=== PATIENT | male | born 1950 | race Caucasian/White ===

== ENCOUNTER → 2021-06-29 | Outpatient (CLI) | payer OTHER ==
[~2021-06-29] MED LIST: ASPIRIN EC81 M1 PO; CIPROFLOXACIN500 M1 PO; DILTIAZEM ER360 MG PO; GLUCOPHAGE1000 MG PO; LISINOPRIL40 MG PO; LOPRESSOR25; OMEPRAZOLE 20 M20 MG PO; PRAVACHOL80 MG PO
== END ==
LOC: M.ULTRA 14:00
PROVIDERS: ATTEND Family Medicine
DX: N28.1 Cyst of kidney, acquired (principal); N18.4 Chronic kidney disease, stage 4 (severe)

== ENCOUNTER 2021-08-21 11:05 | Inpatient (IN) | payer OTHER ==
[~2021-08-21] VITALS: Ht 177.8 cm; Wt 102.1 kg
[~2021-08-21 11:05] MED LIST changes: +DILTIAZEM ER180 M2 PO; -DILTIAZEM ER360 MG PO; -GLUCOPHAGE1000 MG PO; -LOPRESSOR25; +METFORMIN HCL500 MG PO; +OMEPRAZOLE 20 M20 M1 PO; -OMEPRAZOLE 20 M20 MG PO; +PRAVACHOL40 MG PO; -PRAVACHOL80 MG PO; +TOPROL XL200 MG PO
[2021-08-21] MEDS ORDERED: TESSALON PERLE100 MG PO (11:13)
[2021-08-21] MEDS ORDERED: ZINC50 MG PO (11:13)
[2021-08-21] MEDS ORDERED: ONDANSETRON HCL4 M2 PO (11:13)
[2021-08-21 11:14] VITALS: BP 92/45
[2021-08-21] MEDS ORDERED: FLONASE 0.05%50 MCG NARES (11:14)
[2021-08-21] MEDS ORDERED: IMODIUM A-D2 MG PO (11:14)
[2021-08-21] MEDS ORDERED: EAR WAX REMOVAL15 ML OTIC (11:15)
[2021-08-21] MEDS ORDERED: ELIQUIS5 MG PO (11:16)
[2021-08-21] MEDS ORDERED: GLIPIZIDE 10 MG10 MG PO (11:16)
[2021-08-21] MEDS ORDERED: IRON325 M1 PO (11:17)
[2021-08-21] MEDS ORDERED: FUROSEMIDE 80 M80 M1 PO (11:17)
[2021-08-21] MEDS ORDERED: LEVO-T25 MCG PO (11:18)
[2021-08-21] MEDS ORDERED: MELATONIN3 M1 PO (11:18)
[2021-08-21] MEDS ORDERED: COZAAR100 MG PO (11:19)
[2021-08-21] MEDS ORDERED: VITAMIN D350 MC3 PO (11:20)
[2021-08-21] MEDS ORDERED: VITAMIN C500 M1 PO (11:20)
[2021-08-21 11:43] LABS: ABSOLUTE BASOPHILS 0.1 thou/uL (0.0-0.2); ABSOLUTE EOSINOPHILS 0.3 thou/uL (0.0-0.7); ABSOLUTE LYMPHOCYTES 0.9 thou/uL (0.8-5.3); ABSOLUTE MONOCYTES 1.1 thou/uL (0.0-1.2); ABSOLUTE NEUTROPHILS 7.7 thou/uL (1.6-8.1); BASOPHILS 1.5 %; EOSINOPHILS 2.7 %; HEMATOCRIT 30.3 % (42.0-52.0); HEMOGLOBIN 9.9 gm/dL (14.0-18.0); LYMPHOCYTES 9.3 %; MCH 26.3 pg (26.0-34.0); MCHC 32.5 g/dL (28.0-37.0); MCV 80.9 fL (80.0-100.0); MONOCYTES 10.8 %; MPV 8.1 fl. (7.2-11.1); NUCLEATED RBCS 0 /100WBC; PLATELET COUNT* 272 thou/uL (150-400); POLYS 75.7 %; RBC 3.75 mil/uL (4.50-6.00); RDW-CV 23.3 % (10.5-14.5); WBC 10.1 thou/uL (4.0-11.0)
[2021-08-21 11:53] LABS: CALCIUM 8.5 mg/dL (8.5-10.1); CREATININE 3.8 mg/dL (0.6-1.3)
[2021-08-21 12:03] LABS: ALBUMIN 2.9 g/dL (3.4-5.0); TOTAL BILIRUBIN 0.7 mg/dL (<0.1-1.0); TOTAL PROTEIN 6.9 g/dL (6.4-8.2)
[2021-08-21 12:36] LABS: ANISOCYTOSIS 2+; HYPOCHROMASIA 1+
--- NOTE | 2021-08-21 12:58 | EKG ---
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: [facility] : 1950 Requested By: Jess Hong Order Number: [id number] MD: Paxton Patrick Measurements Intervals [place] Rate: 97 P: NM: QRS: 38 QRSD: 101 T: 4 QT: 371 QTc: 472 Interpretive Statements Atrial fibrillation Diffuse nonspecific ST-T alterations No previous ECG available for comparison Electronically Signed On 08-21-2021 12:58:08 [employer]IOR [employer] by Paxton Patrick [email or web address] <ELECTRONICALLY SIGNED> By: Paxton Patrick MD, [facility] 08/21/21 1258 31 31 Paxton Patrick MD, FACC /EPI
[2021-08-21 13:34] LABS: URINE BILIRUBIN NEGATIVE (Negative); URINE BLOOD NEGATIVE (Negative); URINE CLARITY CLEAR; URINE COLOR YELLOW; URINE GLUCOSE-RANDOM NEGATIVE (Negative); URINE KETONES NEGATIVE (Negative); URINE LEUKOCYTES-REFLEX NEGATIVE (Negative); URINE NITRITE-REFLEX NEGATIVE (Negative); URINE PROTEIN NEGATIVE (Negative); URINE SPECIFIC GRAVITY 1.015 (1.005-1.030); URINE UROBILINOGEN 0.2 E.U./dl (0.2-1.0)
--- NOTE | 2021-08-21 15:52 | NUR ---
LACEY: [phone]
[2021-08-21 16:30] VITALS: BP 158/97
[2021-08-21 23:30] VITALS: BP 117/81; BP 120/84
--- NOTE | 2021-08-22 00:59 | NUR ---
PATIENT UP FROM ER VIA CART TO ROOM 232. PT ALERT/ORIENTED X4, PLEASANT. PT FROM [facility] AND STATES HE DOES NOT WANT TO GO BACK THERE. PT SAID HE WAS TO BE DISCHARGED TO HOME SOON BUT BLOOD PRESSURE DROPPED AND HE WAS ADMITTED HERE. PT WAS GOING TO HAVE HOME HEALTH CARE AND HAVE A W/CHAIR AND WALKER PROVIDED AT HOME. HE WAS ALSO SUPPOSE TO HAVE A NEW CPAP DELIVERED TO HIS HOME. PT SAYS HE HAS SUPPORT OF AND DAUGHTER. PT VOIDS YELLOW URINE PER URINAL. PT STATES HE AND HAD COVID APPROX 14-15 DAYS AGO; HAS HAD THE VACCINE AND BOOSTER BUT DOESN'T REMEMBER WHEN. PT WEARS BRIEF AT LONG-TERM AND SAYS HE HAD TO LAY IN URINE FOR HOURS AND HAS SKIN BREAKDOWN ON BOTTOM. AREA IS HEALING. PT AGREED TO LEAVE BRIEF OFF AT THIS TIME AND WAS ABLE TO USE URINAL WITH NO ASSISTANCE. PT ORIENTED TO ROOM/POLICIES AND VERBALIZES UNDERSTANDING. FREQUENTLY USED ITEMS AND CALL LIGHT WITHIN REACH. SIDERAILS UPX3 AND BED ALARM ON. WILL CONTINUE TO MONITOR.
[2021-08-22 04:00] VITALS: BP 120/74
[2021-08-22 05:02] LABS: ABSOLUTE BASOPHILS 0.1 thou/uL (0.0-0.2); ABSOLUTE EOSINOPHILS 0.2 thou/uL (0.0-0.7); ABSOLUTE LYMPHOCYTES 0.7 thou/uL (0.8-5.3); ABSOLUTE MONOCYTES 0.7 thou/uL (0.0-1.2); ABSOLUTE NEUTROPHILS 5.2 thou/uL (1.6-8.1); BASOPHILS 0.8 %; EOSINOPHILS 3.4 %; HEMATOCRIT 29.4 % (42.0-52.0); HEMOGLOBIN 9.2 gm/dL (14.0-18.0); LYMPHOCYTES 10.2 %; MCH 25.7 pg (26.0-34.0); MCHC 31.4 g/dL (28.0-37.0); MONOCYTES 10.7 %; MPV 8.2 fl. (7.2-11.1); NUCLEATED RBCS 0 /100WBC; PLATELET COUNT* 218 thou/uL (150-400); POLYS 74.9 %; RBC 3.58 mil/uL (4.50-6.00); RDW-CV 23.6 % (10.5-14.5); WBC 6.9 thou/uL (4.0-11.0)
[2021-08-22 05:36] LABS: ALBUMIN 2.6 g/dL (3.4-5.0); CALCIUM 8.4 mg/dL (8.5-10.1); TOTAL BILIRUBIN 0.6 mg/dL (<0.1-1.0); TOTAL PROTEIN 6.4 g/dL (6.4-8.2)
[2021-08-22 08:00] VITALS: BP 130/73
[2021-08-22 08:40] LABS: ANISOCYTOSIS 2+; HYPOCHROMASIA 1+
--- NOTE | 2021-08-22 09:44 | NUR ---
CM ASSESSMENT: CM CONTACTED PT'S SPOUSE TO COMPLETE CM ASSESSMENT. PT'S SPOUSE INFORMS THAT THE PT HAS BEEN INPT AT [facility] SINCE 07/25/21 SKILLED. PT'S SPOUSE ALSO INFORMS THAT THEY HAD PLANNED FOR THE PT TO D/C HOME FROM [facility] THIS WEEK, SO THEY PLAN FOR THE PT TO D/C HOME WITH HH FROM THIS HOSPITAL. THEY HAD ALSO PLANNED FOR THE PT TO D/C WITH A WALKER, WHEELCHARI, AND CPAP. THE WHEELCHAIR WAS PLANNED TO BE DELIVERED TO [facility], AND THE CPAP TO THE PT'S HOME ADDRESS ON 08/29/21. PT WILL NEED TO HAVE A WALKER ORDERED HERE PRIOR TO D/C. CM WILL WILL ATTEMPT TO ASSIST WITH THIS THROUGH HIS [employer] INSURANCE. IF THIS IS NOT AN OPTION PT'S SPOUSE INFORMS THAT THE PT IS ABLE TO USE HIS CREDIT CARD TO PURCHASE A WALKER OUTRIGHT. CM WILL ALSO NEED TO ASSIST WITH ARRANGING HH FOR THE PT PRIOR TO D/C. CM WILL REMAIN AVAILABLE TO ASSIST AND FOLLOW NEEDED.
[2021-08-22] MEDS ORDERED: MUCINEX600 MG PO (10:59)
[2021-08-22 13:23] VITALS: BP 105/48
--- NOTE | 2021-08-22 15:58 | 2DMMODE ---
[place] [address] 2 D/M-MODE ECHOCARDIOGRAM Name: GLENNA LARKIN Room: [address] IN [facility]#: [id number] Admission: 08/21/21 Attend Phys: Mak Ramirez Discharge: Date of : 46 Date of Service: 08/22/21 1558 Report #: [id number] THIS REPORT FOR: cc: Blayne Wilkerson MD, Tuongvan T. MD Holkins, John M. MD [facility] ~ APPROVED REPORT Study performed: 08/22/2021 14:43:35 EXAM: Comprehensive 2D, Doppler, and color-flow Echocardiogram Patient Location: In-Patient Room #: [facility] Status: routine BSA: 2.19 HR: 100 bpm BP: 120/74 mmHg Rhythm: Atrial Fibrillation Other Information Study Quality: Good Indications ELEVATED BNP 2D Dimensions IVSd: 10.14 (7-11mm) LVOT Diam: 19.79 (18-24mm) LVDd: 44.61 mm PWd: 9.62 (7-11mm) LVDs: 27.43 (25-40mm) Aortic Root: 31.04 mm Volumes Left Atrial Volume (Systole) LA ESV Index: 37.60 mL/m2 Aortic Valve AoV Peak Jose Angel.: 1.49 m/s AO Peak Gr.: 8.89 mmHg LVOT Max P.00 mmHg AO Mean Gr.: 5.07 mmHg LVOT Mean P.65 mmHg LVOT Max V: 0.87 m/s AO V2 VTI: 22.03 cm LVOT Mean V: 0.61 m/s SABRINA (VTI): 2.27 cm2 LVOT V1 VTI: 16.30 [place] [address] 2 D/M-MODE ECHOCARDIOGRAM Name: GLENNA LARKIN Room: [address] [place] .R.#: [id number] Admission: 08/21/21 Attend Phys: Mak Ramirez Discharge: Date of : 46 Date of Service: 08/22/21 1558 Report #: [id number] TDI Lateral E' Jose Angel.: 0.16 m/s Pulmonary Valve PV Peak Jose Angel.: 0.97 m/s PV Peak Gr.: 3.76 mmHg Tricuspid Valve RAP Estimate: 5.00 mmHg TR Peak Gr.: 44.50 mmHg RVSP: 49.00 mmHg PA Pressure: 49.00 mmHg Left Ventricle The left ventricle is normal size. There is normal LV segmental wall motion. There is normal left ventricular wall thickness. Left ventricular systolic function is normal. The left ventricular ejection fraction is within the normal range. LVEF is 60-65%. This study is not technically sufficient to allow evaluation of the LV diastolic function due to atrial fibrillation. Right Ventricle Right ventricle is at the upper limits of normal. The right ventricular systolic function is normal. Atria Left atrium is mildly dilated. Right atrium is mildly dilated. Aortic Valve Mild aortic valve sclerosis. No aortic regurgitation is present. There is no aortic valvular stenosis. Mitral Valve The mitral valve is normal in structure. There is no mitral valve regurgitation noted. No evidence of mitral valve stenosis. Tricuspid Valve The tricuspid valve is normal in structure. Mild tricuspid regurgitation. Moderate pulmonary hypertension. Pulmonic Valve The pulmonary valve is normal in structure. There is no pulmonic valvular regurgitation. Great Vessels The aortic root is normal in size. IVC is normal in size and collapses >50% [place] [address] 2 D/M-MODE ECHOCARDIOGRAM Name: GLENNA LARKIN Room: [address] [place] [facility]#: [id number] Admission: 08/21/21 Attend Phys: Mak Ramirez Discharge: Date of : 46 Date of Service: 08/22/21 1558 Report #: [id number] Pericardium There is no pericardial effusion. <Conclusion> The left ventricle is normal size. There is normal left ventricular wall thickness. Left ventricular systolic function is normal. The left ventricular ejection fraction is within the normal range. LVEF is 60-65%. This study is not technically sufficient to allow evaluation of the LV diastolic function due to atrial fibrillation. Right ventricle is at the upper limits of normal. The right ventricular systolic function is normal. Left atrium is mildly dilated. Right atrium is mildly dilated. Mild aortic valve sclerosis. No aortic regurgitation is present. There is no aortic valvular stenosis. The mitral valve is normal in structure. The tricuspid valve is normal in structure. Mild tricuspid regurgitation. Moderate pulmonary hypertension. IVC is normal in size and collapses >50% with inspiration. There is no pericardial effusion. There is normal LV segmental wall motion. <ELECTRONICALLY SIGNED> By: Paxton Patrick MD, FACC 08/22/21 1558 1558 1558 Paxton Patrick MD, FACC /INF
[2021-08-22 16:56] VITALS: BP 112/55
--- NOTE | 2021-08-22 18:50 | NUR ---
Hellen is an A+Ox4 71yr old male that can make his needs and wants known, dx acute renal failure. LCTA, respirations are even and nonlabored, BS+X4 with large BM today, uses urnial and up to bedside commode with gait belt walker and SBA, has trace amounts of edema noted to BLE, appetite is good. A-fib on the tele monitor. Call light is in reach, will continue with the plan of care.
[2021-08-22 20:24] VITALS: BP 102/62
[2021-08-23] VITALS: BP 105/63
[2021-08-23 04:00] VITALS: BP 114/69
[2021-08-23 05:25] LABS: ABSOLUTE BASOPHILS 0.1 thou/uL (0.0-0.2); ABSOLUTE EOSINOPHILS 0.2 thou/uL (0.0-0.7); ABSOLUTE LYMPHOCYTES 0.9 thou/uL (0.8-5.3); ABSOLUTE MONOCYTES 0.7 thou/uL (0.0-1.2); ABSOLUTE NEUTROPHILS 4.3 thou/uL (1.6-8.1); EOSINOPHILS 3.9 %; HEMATOCRIT 25.9 % (42.0-52.0); HEMOGLOBIN 8.3 gm/dL (14.0-18.0); LYMPHOCYTES 14.7 %; MCH 26.4 pg (26.0-34.0); MCHC 32.1 g/dL (28.0-37.0); MCV 82.1 fL (80.0-100.0); MONOCYTES 10.8 %; NUCLEATED RBCS 0 /100WBC; PLATELET COUNT* 198 thou/uL (150-400); POLYS 69.6 %; RBC 3.15 mil/uL (4.50-6.00); RDW-CV 23.3 % (10.5-14.5); WBC 6.2 thou/uL (4.0-11.0)
[2021-08-23 05:44] LABS: ALBUMIN 2.4 g/dL (3.4-5.0); CALCIUM 8.2 mg/dL (8.5-10.1); CREATININE 2.4 mg/dL (0.6-1.3); POTASSIUM 4.8 mmol/L (3.5-5.1); TOTAL BILIRUBIN 0.5 mg/dL (<0.1-1.0); TOTAL PROTEIN 5.9 g/dL (6.4-8.2)
--- NOTE | 2021-08-23 07:12 | NUR ---
CHANGE OF SHIFT REPORT GIVEN PATIENT SEEN AT BEDSIDE, IN BED ASLEEP ASSUMED APTIENT CARE
[2021-08-23 07:45] LABS: ANISOCYTOSIS 2+; HYPOCHROMASIA 1+
[2021-08-23 08:00] VITALS: BP 114/68
--- NOTE | 2021-08-23 09:58 | NUR ---
PT IS ABLE TO COMMUNICATE HIS NEEDS TO STAFF EFFECTIVELY. HE HAS DENIED THE NEED FOR PAIN MEDICATION UP TO 0700 THIS MORNING. PT HAD AN EPISODE OF PERSISTENT COUGHING OVERNIGHT; PAGED, ORDERS RECEIVED, PT TOLERATED VERY WELL.
[2021-08-23 12:40] VITALS: BP 112/54
--- NOTE | 2021-08-23 17:14 | NUR ---
PLAN OF CARE: PLAN FOR THE PT TO D/C HOME WITH HH WHEN MEDICALLY STABLE. PT WILL NEED WALKER AT D/C. CM WILL REMAIN AVAILABLE TO ASSIST AND FOLLOW NEEDED.
[2021-08-23 17:22] VITALS: BP 118/59
[2021-08-23 21:04] VITALS: BP 119/58
[2021-08-24] VITALS: BP 128/60
[2021-08-24 04:00] VITALS: BP 123/52
--- NOTE | 2021-08-24 05:06 | NUR ---
PT A&OX4, VSS ON ROOM AIR, AFIB ON TELE MONITOR, IV SALINE LOCKED. PT REPOSITIONED Q2H. NO CO PAIN OR DISCOMFORT. PT SLEEPING WELL, WILL CONTINUE TO MONITOR.
[2021-08-24 08:00] VITALS: BP 133/53
[2021-08-24 08:02] LABS: ABSOLUTE BASOPHILS 0.1 thou/uL (0.0-0.2); ABSOLUTE EOSINOPHILS 0.2 thou/uL (0.0-0.7); ABSOLUTE LYMPHOCYTES 0.7 thou/uL (0.8-5.3); ABSOLUTE MONOCYTES 0.6 thou/uL (0.0-1.2); ABSOLUTE NEUTROPHILS 4.1 thou/uL (1.6-8.1); BASOPHILS 0.9 %; EOSINOPHILS 3.6 %; HEMATOCRIT 26.9 % (42.0-52.0); HEMOGLOBIN 8.7 gm/dL (14.0-18.0); LYMPHOCYTES 11.7 %; MCH 25.9 pg (26.0-34.0); MCHC 32.1 g/dL (28.0-37.0); MCV 80.8 fL (80.0-100.0); MONOCYTES 11.2 %; MPV 7.8 fl. (7.2-11.1); NUCLEATED RBCS 0 /100WBC; PLATELET COUNT* 210 thou/uL (150-400); POLYS 72.6 %; RBC 3.34 mil/uL (4.50-6.00); RDW-CV 23.8 % (10.5-14.5); WBC 5.7 thou/uL (4.0-11.0)
[2021-08-24 08:25] LABS: ALBUMIN 2.5 g/dL (3.4-5.0); CALCIUM 8.4 mg/dL (8.5-10.1); CREATININE 2.2 mg/dL (0.6-1.3); TOTAL BILIRUBIN 0.4 mg/dL (<0.1-1.0); TOTAL PROTEIN 6.2 g/dL (6.4-8.2)
[2021-08-24 08:54] LABS: PLATELET ESTIMATE ADEQUATE
[2021-08-24 08:55] LABS: HYPOCHROMASIA 1+; MACROCYTES Occasional; MICROCYTES Occasional
[2021-08-24 08:56] LABS: ANISOCYTOSIS 1+
[2021-08-24 12:00] VITALS: BP 128/59
[2021-08-24 14:03] VITALS: BP 133/53
[2021-08-24 14:26] VITALS: BP 133/53
[2021-08-24] MEDS ORDERED: TESSALON PERLE100 MG PO (17:12)
[2021-08-24] MEDS ORDERED: OMEPRAZOLE 20 M20 M1 PO (17:12)
[2021-08-24] MEDS ORDERED: ELIQUIS5 MG PO (17:12)
[2021-08-24] MEDS ORDERED: LIPITOR 40 MG T40 M1 PO (17:12)
[2021-08-24] MEDS ORDERED: ADULT LOW DOSE81 MG PO (17:12)
[2021-08-24] MEDS ORDERED: LEVOTHYROXINE25 MCG PO (17:12)
[2021-08-24] MEDS ORDERED: GLIPIZIDE 10 MG10 MG PO (17:12)
[2021-08-24] MEDS ORDERED: DILTIAZEM 24HR180 M1 PO (17:12)
[2021-08-24] MEDS ORDERED: METFORMIN HCL500 MG PO (17:12)
[2021-08-24] MEDS ORDERED: TOPROL XL100 MG PO (17:12)
--- NOTE | 2021-08-24 17:59 | NUR ---
PT GIVEN DISCHARGE PAPERWORK AND UNDERSTANDS DISCHARGE INSTRUCTIONS. PT AWARE THAT ALL MEDICATIONS HAVE BEEN ELECTRONICALLY SENT TO [facility]. PT IV DISCONTINUED SUCCESSFULLY WITH NO COMPLICATIONS. PT WHEELED OFF UNIT AT 1750 WITH [facility].
== END 2021-08-24 17:58 | disposition home health service (06) | DRG 291 ==
LOC: M.ERS 11:05 → M.2W 12:38 → M.TBA-ER 12:38 → M.2W 08-22 01:05
PROVIDERS: Nurse Practitioner Family; ADMIT Internal Medicine; ATTEND Internal Medicine
DX: I13.0 Hypertensive heart and chronic kidney disease with heart failure and stage 1 through stage 4 chronic kidney disease, or unspecified chronic kidney disease (principal); N17.0 Acute kidney failure with tubular necrosis; I50.33 Acute on chronic diastolic (congestive) heart failure; E87.1 Hypo-osmolality and hyponatremia; E44.0 Moderate protein-calorie malnutrition; I95.2 Hypotension due to drugs; N18.9 Chronic kidney disease, unspecified; Z20.822 Contact with and (suspected) exposure to COVID-19; E11.22 Type 2 diabetes mellitus with diabetic chronic kidney disease; E66.9 Obesity, unspecified; N28.89 Other specified disorders of kidney and ureter; K21.9 Gastro-esophageal reflux disease without esophagitis; I48.91 Unspecified atrial fibrillation; Z87.442 Personal history of urinary calculi; Z90.49 Acquired absence of other specified parts of digestive tract; Z68.32 Body mass index [BMI] 32.0-32.9, adult; T50.1X5A Adverse effect of loop [high-ceiling] diuretics, initial encounter